=== PATIENT | male | born 1970 | race Caucasian/White ===

== ENCOUNTER 2016-11-14 14:17 | Emergency (ER) | payer OTHER ==
--- NOTE | 2016-11-14 15:15 | EDPHY ---
H & P Stated Complaint: possible venous ulcers on bilateral LEs since September, blood draw 11/09 - Personal History Current Tetanus/Diphtheria Vaccine: Yes Tetanus Vaccine Date: WITHIN 10 YRS - Medical/Surgical History Hx Asthma: No Hx Chronic Respiratory Disease: No Hx Diabetes: No Hx Cardiac Disease: No Hx Renal Disease: No Hx Cirrhosis: No Hx Alcoholism: No Hx HIV/AIDS: No Hx Splenectomy or Spleen Trauma: No Other PMH: none - Social History Smoking Status: Former smoker Time Seen by Provider: 11/14/16 14:58 HPI/ROS: CHIEF COMPLAINT: "Possible pressure ulcers" HISTORY OF PRESENT ILLNESS: 46-year-old immunocompetent male complaining of 3 months of bilateral pretibial the lesions. He has been followed by Dr. Mikie Isaacs at the [facility] for left calf EVLT and states that he started to develop left pretibial irritation, sloughing of skin and eschar a few months ago and has now developed similar right pretibial lesions. He has been seen by a primary care provider who recommend he follow up with heel lining paster. He saw heel lining paster who ordered multiple laboratory studies on 11/09/2016 and was informed that she was unable to interpret his laboratory studies and recommend he go to solution coordinator. He main appoint with solution coordinator hours X available appointment is not until 3 weeks. He therefore came to the ER for evaluation his laboratory studies and possible diagnosis. He has been wearing [place] hose. He is able to bear weight. There is no history of trauma. There is no crepitus. There is no lymphangitic streaking. No other rashes. No intraoral lesions. No ocular irritation. No genitalia lesions REVIEW OF SYSTEMS: A ten point review of systems was performed and is negative with the exception of the items mentioned in the HPI PAST MEDICAL & SURGICAL HISTORY: No anticoagulant use SOCIAL HISTORY: works as a software sales PHYSICAL EXAM (Prior to examination, patient consented to physical exam, hands were washed and my usual and customary physical exam procedures followed) 1) GENERAL: Well-developed, well-nourished, alert and oriented. Appears to be in no acute distress. 2) HEAD: Normocephalic, atraumatic 3) HEENT: . Sclera anicteric. 4) NECK: Full range of motion, no meningeal signs. 5) LUNGS: Breathing comfortably 6) HEART: Regular rate and rhythm, no murmur, no heave, no gallop. 7) ABDOMEN: No guarding, no rebound, no focal tenderness, 8) MUSCULOSKELETAL: Bilateral pretibial lesions in various stages of healing, some with erythema excoriation some with eschar . Soft compartments. Bilateral DP PT pulses present and brisk. No lymphangitic streaking. No inguinal adenopathy. No crepitus. No pain with passive range of motion distally bilaterally. 9) BACK: no visual or palpable abnormality. 10) SKIN: No rash, no petechiae. 11) Psychiatric: Patient is oriented X 3, there is no agitation. DIFFERENTIAL DIAGNOSIS: In no particular include but limited to cellulitis, arterial occlusion, venous occlusion, necrotizing fasciitis (Sneha Pineda) Constitutional: Initial Vital Signs Temperature (C) 36.5 C 11/14/16 14:30 Heart Rate 61 11/14/16 14:30 Respiratory Rate 14 11/14/16 14:30 Blood Pressure 135/93 H 11/14/16 14:30 O2 Sat (%) 96 11/14/16 14:30 O2 Delivery Mode Room Air Allergies/Adverse Reactions: ibuprofen Allergy (Verified 06/21/14 15:12) Home Medications: Medication Instructions Recorded Ambien 11/14/16 Cephalexin [Keflex] 500 mg PO QID 7 Days 11/14/16 Hydrocortisone 1% [Hydrocortisone 1 baldemar TOP BID #45 g 11/14/16 1% Cream] traMADol 11/14/16 Medical Decision Making - Diagnostics Imaging: Discussed imaging studies w/ call person Radiologist - Diagnostics Imaging Results: Imaging Impressions Extremity Venous Study 11/14/16 15:08 Impression: 1. Left greater saphenous vein superficial thrombophlebitis. 2. No deep venous thrombosis bilateral legs. Findings and recommendations discussed with Emergency Department physicianSneha PAC at 16:24 hour, 11/14/2016. Final report concurs with initial preliminary interpretation. ED Course/Re-evaluation: Patient was re-evaluated with serial examinations. Patient was also seen exam by Dr. Addy Soto in the emergency department. The specific etiology of his symptoms is not completely clear at this time. He has seen a heel lining paster who was not familiar with the etiology of his symptoms. I think that DVT is less than likely, doubt compartment syndrome. We discussed possibility of contact dermatitis, possibility of cellulitic super infection on top of his lesions which appear to be excoriated. Plan will be starting the patient on oral Keflex x7 days, topical steroid, follow up with wound surgeon Dr. Katia Brown and given name of primary care provider on-call Dr. Albina Noland. Given usual customary wound precautions and instructions. He feels comfortable with this plan. States that he already has an appointment with a solution coordinator which was recommended to him by his heel lining paster. (Sneha Pineda) I also saw this patient in the emergency department. I reviewed the history of having had venous ligation and now 3 weeks of rash that is painful. We talked about that he had gone did heel lining paster who liana labs but was not able to interpret. The labs were reviewed and he does have a somewhat elevated CRP and possibly elevated MUNA. Patient has no fever. He has no posterior calf pain on exam. The rash appears to be excoriated on the anterior shins bilaterally without lymphangitis. There are some slightly deeper scratch appearing areas. I reviewed his ultrasound which shows no evidence for DVT. We discussed plan of the antibiotics and steroids. Patient expresses understanding and agreement (Addy Soto) Departure - Departure Disposition: Home, Routine, Self-Care Clinical Impression: Bilateral pretibial rash Condition: Good Instructions: Acute Rash (ED) Additional Instructions: Return to the emergency department if you develop redness, red streaks going up the leg, pain, or any other symptoms that concern you Referrals: Katia Brown MD [Medical Doctor] - 5-7 days, call for appt. (Dr. Katia Brown is a general surgeon and transportation maintenance specialist) Albina Noland MD [Medical Doctor] - 2-3 days without fail (Dr. Albina Noland is adult medicine provider ) Prescriptions: Cephalexin [Keflex] 500 mg PO QID 7 Days Hydrocortisone 1% [Hydrocortisone 1% Cream] 1 baldemar TOP BID #45 g
[2016-11-14 17:42] VITALS: RESP 20
[2016-11-14 17:44] VITALS: BP 133/82; PULSE 68; TEMP 98.6; O2SAT 94
== END 2016-11-14 17:30 | disposition home or self-care (01) ==
DX: R21 Rash and other nonspecific skin eruption (principal); Z87.891 Personal history of nicotine dependence

== ENCOUNTER 2017-04-05 06:13 | Inpatient (IN) | payer OTHER ==
[2017-04-05] MEDS ORDERED: ceFAZolin 2 GM/SWFI 2 GM/20 ML SYR IVP ONE (06:22)
[2017-04-05] MEDS ORDERED: BUPIVACAINE 0.5% 30 ML SDV ONE (06:23)
[2017-04-05] MEDS ORDERED: LR 1,000 ML IV ONE (06:23)
[2017-04-05] MEDS ORDERED: LIDOCAINE 1% 2 ML INJ ID PRN (06:39)
[2017-04-05] MEDS ORDERED: PROPOFOL 200 MG/20 ML VIAL ONE (06:45)
[2017-04-05] MEDS ORDERED: PHENYLEPHRINE 10 MG/ML SDV ONE (06:45)
[2017-04-05] MEDS ORDERED: LIDOCAINE 2% 5 ML SDV ONE (06:45)
[2017-04-05] MEDS ORDERED: MIDAZOLAM 2 MG/2 ML VIAL ONE ×3 (06:50→10:28)
--- NOTE | 2017-04-05 06:52 | PDANEPAE ---
ANE History of Present Illness 47 year old male for bilateral leg debridement ANE Past Medical History - Cardiovascular History Hx Hypertension: No Hx Arrhythmias: No Hx Chest Pain: No Hx Coronary Artery / Peripheral Vascular Disease: No Hx CHF / Valvular Disease: No Hx Palpitations: No - Pulmonary History Hx COPD: No Hx Asthma/Reactive Airway Disease: No Hx Recent Upper Respiratory Infection: No Hx Oxygen in Use at Home: No - Neurologic History Hx Cerebrovascular Accident: No Hx Seizures: No Hx Dementia: No - Endocrine History Hx Diabetes: No - Renal History Hx Renal Disorders: No - Liver History Hx Hepatic Disorders: No - Neurological & Psychiatric Hx Hx Neurological and Psychiatric Disorders: No - Cancer History Hx Cancer: No - Congenital Disorder History Hx Congenital Disorders: No - GI History Hx Gastrointestinal Disorders: No - Chronic Pain History Chronic Pain: Yes - Surgical History Prior Surgeries: HERNIA, L LEG VEIN OBLATION ANE Review of Systems Review of Systems: - Exercise capacity METS (RN): 4 METS ANE Patient History - Allergies Allergies/Adverse Reactions: ibuprofen Allergy (Mild, Verified 04/05/17 06:44) Itching - Home Medications Home Medications: Ambien 11/14/16 [Last Taken 2 Months Ago ~02/03/17] traMADol 11/14/16 [Last Taken 04/04/17] - Smoking Hx Smoking Status: Former smoker - Family Anes Hx Family Hx Anesthesia Complications: NO ANE Labs/Vital Signs - Vital Signs Height: 182.88 cm Weight: 70.307 kg ANE Physical Exam - Airway Mallampati Score: Class 2 ANE Anesthesia Plan Anesthesia Plan: GA w LMA
[2017-04-05] MEDS ORDERED: PROPOFOL/EMULSION 500 MG/50 ML BOTTLE IV ONE (06:53)
--- NOTE | 2017-04-05 07:04 | PDHPUP ---
History & Physical Update H&P update statement: This history and physical update is based on an assessment of the patient which was completed after admission or registration (within 24 hours), but prior to the surgery/procedure. H&P update: H&P reviewed & patient examined, no change in patient's condition since H&P completed
[2017-04-05] MEDS ORDERED: DEXAMETHASONE 4 MG/ML VIAL ONE (08:59)
[2017-04-05] MEDS ORDERED: fentaNYL 250 MCG/5 ML INJ ONE (08:59)
[2017-04-05] MEDS ORDERED: KETOROLAC 30 MG/1 ML SDV ONE (08:59)
[2017-04-05] MEDS ORDERED: fentaNYL 100 MCG/2 ML INJ ONE (09:01)
[2017-04-05] MEDS ORDERED: HYDROmorphONE/DILAUDID 1 MG/ML INJ ONE ×2 (10:20→11:01)
[2017-04-05] MEDS ORDERED: LABETALOL HCL 5 MG/ML 20 ML MDV ONE (10:35)
[2017-04-05] MEDS: LABETALOL HCL 5 MG/ML 20 ML MDV IVP PRN ×4 (10:37→10:58)
[2017-04-05] MEDS ORDERED: ONDANSETRON 4 MG/2 ML VIAL IVP PRN (10:47)
[2017-04-05] MEDS ORDERED: traMADol 50 MG TAB PO PRN (10:47)
[2017-04-05] MEDS ORDERED: NALOXONE HCL 0.4 MG/ML INJ IVP PRN ×2 (10:55→14:59)
[2017-04-05] MEDS: HYDROmorphONE/DILAUDID 1 MG/ML INJ IVP PRN ×3 (11:04→11:41)
[2017-04-05] MEDS ORDERED: hydrALAZINE 20 MG/ML VIAL ONE (11:18)
[2017-04-05] MEDS ORDERED: hydrALAZINE 20 MG/ML VIAL IVP PRN ×2 (11:59→12:15)
[2017-04-05] MEDS ORDERED: predniSONE 20 MG TAB PO ONE (12:00)
[2017-04-05] MEDS: KETOROLAC 15 MG/1 ML SDV IVP SCH ×2 (12:59→19:13)
[2017-04-05 14:56] LABS: PLATELET COUNT 429 10^3/uL (150-400)
[2017-04-05] MEDS ORDERED: ALTEPLASE 2 MG VIAL IVP PRN (14:59)
[2017-04-05] MEDS ORDERED: PROTAMINE SULFATE 50 MG/5 ML VIAL IVP PRN (14:59)
[2017-04-05] MEDS ORDERED: FLUMAZENIL 0.5 MG/5 ML MDV IVP PRN (14:59)
[2017-04-05] MEDS ORDERED: HEPARIN 10,000 UNIT/10 ML MDV IVP PRN (14:59)
[2017-04-05] MEDS ORDERED: fentaNYL 100 MCG/2 ML INJ IVP PRN (14:59)
[2017-04-05] MEDS ORDERED: MIDAZOLAM 2 MG/2 ML VIAL IVP PRN (14:59)
[2017-04-05] MEDS ORDERED: NS 1,000 ML IV SCH (15:00)
[2017-04-05 15:08] LABS: INR 1.08 (0.83-1.16); PROTIME(PATIENT) 14.2 SEC (12.0-15.0)
[2017-04-05] MEDS ORDERED: IOPAMIDOL (ISOVUE-300) 100 ML BTL ONE ×3 (15:56→18:24)
--- NOTE | 2017-04-05 17:16 | PDRADPN ---
Radiology Procedure Note Date of Procedure: 04/05/17 Radiologist: Yobany Pantoja Anesthesia: IV Sedation Pre-op Diagnosis: Bilateral lower extremity ulcers Post-op Diagnosis: Iliac venous stenoses Indication: Worsening lower extremity ulceration despite endovenous Rx Procedure: Bilateral iliofemoral venography Finding(s): Stenoses of left common iliac vein and right external iliac vein. Inf/Abcess present in the surg proc area at time of surgery?: No EBL: Minimal Complications: 0
--- NOTE | 2017-04-05 17:49 | PDHOSCONS ---
Hospitalist Consult Hospitalist Consult: Referring Physician: Dr. Brown Reason for consultation: medical mgmt 47 yo male with 8 month history of worsening bilateral lower extremity ulcers. Biopsy c/w chronic stasis dermatitis. Admitted today for debridement per Dr. Brown. He had venography done today and these are c/w bilateral iliac stenosis. 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 Meds/Allergy: ibuprofen O: VSS and reviewed NAD AAOX3 HEENT, PEERLA, EOMI, MMM NO JVD RRR CTA B S/NT/ND SKIN WARM LE WITH DRESSINGS, DID NOT REMOVE MOOD APPROPRIATE LABS: WBC: 7.8, HGB: 13.8, PLATELETS 429, CRP: 49.2 REVIEWED VENOGRAM WITH RADIOLOGY I/P #Bilateral LE ulcers, etiology unclear #Bilateral Iliac Venous Stenosis, unclear etiology #Tobacco abuse disorder #Neuropathic pain Plan: -Per IR recommendations, will order CT abd/pelvis for further evaluation/ etiology -check for risk factors -will provide IVF given contrast -surgical mgmt per surgery thank you for this consult, we will follow along with you.
[2017-04-05] MEDS: GABAPENTIN 300 MG CAP PO SCH ×2 (19:13→22:42)
[2017-04-05] MEDS: NS 1,000 ML IV SCH (19:17)
[2017-04-05] MEDS: HYDROCODONE/APAP 5/325 TAB PO PRN (22:45)
[2017-04-05] MEDS: ZOLPIDEM TARTRATE 5 MG TAB PO PRN (22:46)
[2017-04-06] MEDS: KETOROLAC 15 MG/1 ML SDV IVP SCH ×4 (00:11→18:29)
[2017-04-06 04:33] LABS: PLATELET COUNT 439 10^3/uL (150-400)
[2017-04-06] MEDS: NS 1,000 ML IV SCH (08:57)
[2017-04-06] MEDS: PANTOPRAZOLE SODIUM 40 MG TAB PO SCH (10:35)
[2017-04-06] MEDS: GABAPENTIN 300 MG CAP PO SCH ×3 (10:35→21:12)
--- NOTE | 2017-04-06 11:19 | SOAPPROG ---
SOAP Progress Note Assessment/Plan: Assessment: POD # 1 s/p debridement of bilateral lower extremities and tissue biopsy C3, C4 and cryoglobulins still pending Tissue at [place] to evaluate for vasculitus Path pending at [facility] Micro with rare gn lactose radiation protection technician Hypertensive May Massey on Left and external iliac compression on right. CT without abdominal mass 1) Venogram with stent 2) Prednisone taper (previously help pain and could see CRP drop precipitously with medrol dose pack) Have discussed with his drug clerk in the event he will need to be on a steroid sparing regimine data processing systems consultant 3) Multimodal pain control - Neurontin, Toradol, [place] 4) Appreciate hospitalists helping with his hypertension 5) Holding off on Abx for now S: Slept last night Sitting in bed- pleasant and cooperative CTAB No increased work of breathing Regular rate Wraps on legs Plan: 04/06/17 11:15 Objective: Vital Signs Temp Pulse Resp BP Pulse Ox 36.6 C 89 18 160/93 H 96 04/06/17 08:01 04/06/17 08:01 04/06/17 08:01 04/06/17 08:01 04/06/17 08:01 Microbiology 04/05/17 10:13 Gram Stain - Final Leg - Tissue 04/05/17 10:13 Mycobacterial Smear (MAURI) - Final Leg - Tissue Laboratory Results 04/06/17 04:04 04/06/17 04:04 04/05/17 04/06/17 04/07/17 05:59 05:59 05:59 Intake Total 5025 Output Total 1950 900 Balance 3075 -900 PT 14.2 SEC (12.0-15.0) 04/05/17 14:50 INR 1.08 (0.83-1.16) 04/05/17 14:50 ICD10 Worksheet Patient Problems: Problems Problem Status Onset Bilateral leg ulcer Acute - ICD10 Problem Qualifiers (1) Bilateral leg ulcer Qualifiers: Non-pressure ulcer stage: with fat layer exposed Qualified Code(s): L97.912 - Non-pressure chronic ulcer of unspecified part of right lower leg with fat layer exposed; L97.922 - Non-pressure chronic ulcer of unspecified part of left lower leg with fat layer exposed; L97.922 - Non-pressure chronic ulcer of unspecified part of left lower leg with fat layer exposed; L97.922 - Non-pressure chronic ulcer of unspecified part of left lower leg with fat layer exposed; L97.922 - Non-pressure chronic ulcer of unspecified part of left lower leg with fat layer exposed
[2017-04-06] MEDS ORDERED: predniSONE 20 MG TAB PO ONE (12:00)
--- NOTE | 2017-04-06 12:21 | ASMTCMCOM ---
CM Note CM Note Notes: 04/06/2017 Case Management Note Reviewed chart. Pt had debridement of lower extremities yesterday. Awaiting wound care notes for help in planning d/c. There are no PT or OT evals ordered at this time. Case Management d/c poc: TBD Case Management to follow. Date Signed: 04/06/2017 12:21 PM Electronically Signed By:Zuleyma Larson RN
[2017-04-06] MEDS: HYDROCODONE/APAP 5/325 TAB PO PRN ×3 (13:20→22:26)
--- NOTE | 2017-04-06 15:46 | HOSPPROG ---
Hospitalist Progress Note Assessment/Plan: # Hypertension- without previous history- SBP 140-190 overnight - patient denies any substances with withdrawal syndrome Actively having pain requiring p.r.n. narcotics- oxygen saturations 94% on room air - start low-dose Norvasc 2.5 mg p.o. daily -can continue at DC - hold additional p.r.n. blood pressure medications - continue prn pain meds - Continue to monitor # Bilateral LE wounds- extensive outpatient workup including Rheumatology, Infectious Disease, vascular and surgery CT abdomen (personally reviewed and interpreted) confirms no intra- abdominal mass- venogram confirms stenoses bilaterally Wound culture with Pseudomonas - Dr. Guzmán managing actively - completing empiric prednisone burst - planning for venous stenting by IR bilaterally - discussed wound culture results with Dr. Guzmán # acute leukocytosis- WBC 11 suspect secondary to steroids - continue to monitor # proph - Lovenox # diet - regular # dispo - > 2MN as requires inpatient monitoring and intervention the venous stenoses I have discussed the case with Dr. Guzmán we will plan on IR intervention Subjective: Pain bilateral lower extremity Objective: Vital Signs Temp Pulse Resp BP Pulse Ox 36.4 C 82 18 169/103 H 96 04/06/17 11:38 04/06/17 11:38 04/06/17 11:38 04/06/17 11:38 04/06/17 11:38 Microbiology 04/05/17 10:13 Gram Stain - Final Leg - Tissue 04/05/17 10:13 Mycobacterial Smear (MAURI) - Final Leg - Tissue Laboratory Results 04/06/17 04:04 04/06/17 04:04 04/05/17 04/06/17 04/07/17 05:59 05:59 05:59 Intake Total 5025 Output Total 1950 900 Balance 3075 -900 PT 14.2 SEC (12.0-15.0) 04/05/17 14:50 INR 1.08 (0.83-1.16) 04/05/17 14:50 - Physical Exam Constitutional: appears nourished Eyes: anicteric sclera Ears, Nose, Mouth, Throat: moist mucous membranes Cardiovascular: regular rate and rhythym Respiratory: no respiratory distress Gastrointestinal: normoactive bowel sounds Genitourinary: no bladder fullness Skin: warm, other (Bilateral lower extremities dressed- serosanguineous drainage ) Musculoskeletal: No asymmetric calves Neurologic: AAOx3 Psychiatric: interacting appropriately Lymph, Heme, Immunologic: no cervical LAD ICD10 Worksheet Patient Problems: Problems Problem Status Onset Bilateral leg ulcer Acute
[2017-04-06] MEDS: ZOLPIDEM TARTRATE 5 MG TAB PO PRN (23:00)
--- NOTE | 2017-04-06 23:28 | GOP ---
[f rep st] OPERATIVE REPORT DATE OF OPERATION: 04/05/2017 SURGEON: Katia Brown MD ANESTHESIA: General. ANESTHESIOLOGIST: Otoniel Gee MD PREOPERATIVE DIAGNOSIS: Bilateral lower extremity chronic ulcers. POSTOPERATIVE DIAGNOSIS: Bilateral lower extremity chronic ulcers. PROCEDURE PERFORMED: Debridement of skin and soft tissue to the level of the fascia, bilateral lower extremities. FINDINGS: The wound on the right lower extremity medial malleolus measures 0.5 x 0.2 x 0.1 cm to the level of fat. The distal wound measures 0.8 x 1.5 x 0.1 cm. The middle wound measures 3 x 5.5 x 0.5 cm to the level of fat. Proximal wound measures 3.5 x 1 x 0.1 to the level of fat. The lateral wound measures 2.5 x 2 x 0.4 to the level of fascia. On the left lower extremity, the distal wound measures 12 x 7 x 0.5, and the proximal wound measures 1.1 x 1 x 0.1 cm to the level of fat. SPECIMENS: Biopsy for immunofluorescence, pathology, and microbiology. ESTIMATED BLOOD LOSS: 50 mL. INDICATIONS: The patient is a 47-year-old man who developed ulcers on his left lower extremity. He was found to have venous insufficiency and underwent ablation. He then developed wounds on the right lower extremity. He has tried a variety of treatments and has sought multiple opinions. He recently came back to my practice, and his wounds were much worse. Due to the pain, operative debridement was indicated. DESCRIPTION OF PROCEDURE: Patient was brought into the operating room, placed supine on the table, and general anesthesia was administered. His bilateral lower extremities were prepped with Betadine and draped. I used a combination of cautery, Versajet, and sharp dissection to debride each of the wounds ( measurements above). He had some areas of vasculitic purpura; 1 area was biopsied, and it was surprising to find that the wound immediately went to the fascia and tracked underneath. Each of the wounds was cleaned, and then biopsies were taken and submitted for immunofluorescence, permanent pathology, and microbiology. Hemostasis was achieved. Hydrofera Blue was applied. Cast wrap followed by Bryan bandages were applied. He tolerated the procedure well. He was awakened in the operating room, extubated, and transferred to PACU in stable condition. /[id number]/MODL MTDD
[2017-04-07] MEDS: KETOROLAC 15 MG/1 ML SDV IVP SCH ×5 (00:32→23:43)
[2017-04-07] MEDS: HYDROCODONE/APAP 5/325 TAB PO PRN ×3 (08:02→20:46)
[2017-04-07] MEDS: GABAPENTIN 300 MG CAP PO SCH ×3 (08:02→20:46)
[2017-04-07] MEDS: PANTOPRAZOLE SODIUM 40 MG TAB PO SCH (08:03)
[2017-04-07] MEDS: ASCORBIC ACID 500 MG TAB PO SCH (08:05)
[2017-04-07] MEDS ORDERED: ASCORBIC ACID 250 MG TAB PO SCH (09:00)
--- NOTE | 2017-04-07 09:08 | SOAPPROG ---
SOAP Progress Note Assessment/Plan: Assessment: Spent 20 minutes on phone with lars's sister at his request POD # 2 s/p debridement of bilateral lower extremities and tissue biopsy C3, C4 and cryoglobulins still pending HGB A1c pending Tissue at [place] to evaluate for vasculitus Path pending at [facility] Micro with rare pseudomonas. Evaluated wounds with Dr. Murrieta and no abx indicated Hypertensive - appreciate Dr. Piter Massey on Left and possible external iliac compression on right. CT without abdominal mass 1) IVUS as outpatient - Dr. Calderón getting equipment 2) Prednisone taper (previously help pain and could see CRP drop precipitously with medrol dose pack) Have discussed with his cnc specialist in the event he will need to be on a steroid sparing retirement 3) Multimodal pain control - Neurontin, Toradol, [place] 4) Appreciate hospitalists helping with his hypertension 5) Holding off on Abx for now Will keep in house another 24 hours as required IV pain control last night and hypertension still be addressed S: Pain after dressing changes Sitting in bed- pleasant and cooperative CTAB No increased work of breathing Regular rate Wraps on legs Wounds evaluated yesterday - smaller than when examined in the OR. Healthy. No signs of infection Plan: 04/06/17 11:15 04/07/17 09:04 Objective: Vital Signs Temp Pulse Resp BP Pulse Ox 36.3 C 87 16 140/95 H 97 04/07/17 05:06 04/07/17 08:06 04/07/17 08:06 04/07/17 08:06 04/07/17 08:06 Microbiology 04/05/17 10:13 Gram Stain - Final Leg - Tissue Laboratory Results 04/06/17 04:04 04/06/17 04:04 04/06/17 04/07/17 04/08/17 05:59 05:59 05:59 Intake Total 5025 3041 Output Total 1950 2950 750 Balance 3075 91 -750 PT 14.2 SEC (12.0-15.0) 04/05/17 14:50 INR 1.08 (0.83-1.16) 04/05/17 14:50 ICD10 Worksheet Patient Problems: Problems Problem Status Onset Bilateral leg ulcer Acute - ICD10 Problem Qualifiers (1) Bilateral leg ulcer Qualifiers: Non-pressure ulcer stage: with fat layer exposed Qualified Code(s): L97.912 - Non-pressure chronic ulcer of unspecified part of right lower leg with fat layer exposed; L97.922 - Non-pressure chronic ulcer of unspecified part of left lower leg with fat layer exposed; L97.922 - Non-pressure chronic ulcer of unspecified part of left lower leg with fat layer exposed; L97.922 - Non-pressure chronic ulcer of unspecified part of left lower leg with fat layer exposed; L97.922 - Non-pressure chronic ulcer of unspecified part of left lower leg with fat layer exposed
[2017-04-07] MEDS: predniSONE 20 MG TAB PO SCH (11:19)
[2017-04-07] MEDS ORDERED: amLODIPine BESYLATE 5 MG TAB PO SCH (14:23)
--- NOTE | 2017-04-07 14:26 | HOSPPROG ---
Hospitalist Progress Note Assessment/Plan: # Hypertension- without previous history- SBP 140-180 overnight - patient denies any substances with withdrawal syndrome Actively having pain requiring p.r.n. narcotics- oxygen saturations 95% on room air - increase Norvasc to 5 mg p.o. daily -can continue at DC - hold additional p.r.n. blood pressure medications - continue prn pain meds - Continue to monitor # Bilateral LE wounds- extensive outpatient workup including Rheumatology, Infectious Disease, vascular and surgery CT abdomen (personally reviewed and interpreted) confirms no intra- abdominal mass- venogram confirms stenoses bilaterally Wound culture with Pseudomonas - Dr. Guzmán managing actively - completing empiric prednisone burst - planning for venous stenting by IR bilaterally as outpt -adding Toradol today # acute leukocytosis- WBC 11 suspect secondary to steroids - continue to monitor # proph - Lovenox # diet - regular # dispo - > 2MN as requires inpatient monitoring and intervention the venous stenoses I have discussed the case with Dr. Guzmán we will plan for dc tomorrow if pain better controlled Subjective: concerned about returning home Objective: Vital Signs Temp Pulse Resp BP Pulse Ox 36.4 C 56 L 16 153/96 H 95 04/07/17 12:34 04/07/17 12:34 04/07/17 12:34 04/07/17 12:34 04/07/17 12:34 Microbiology 04/05/17 10:13 Gram Stain - Final Leg - Tissue 04/05/17 10:13 Mycobacterial Smear (MAURI) - Final Leg - Tissue Laboratory Results 04/06/17 04:04 04/06/17 04:04 04/06/17 04/07/17 04/08/17 05:59 05:59 05:59 Intake Total 5025 3041 500 Output Total 1950 2950 750 Balance 3075 91 -250 PT 14.2 SEC (12.0-15.0) 04/05/17 14:50 INR 1.08 (0.83-1.16) 04/05/17 14:50 - Physical Exam Constitutional: appears nourished Eyes: anicteric sclera Ears, Nose, Mouth, Throat: moist mucous membranes Cardiovascular: regular rate and rhythym Respiratory: no respiratory distress Gastrointestinal: normoactive bowel sounds Genitourinary: no bladder fullness Skin: warm, other (bilateral LE wrapped) Musculoskeletal: No asymmetric calves Neurologic: AAOx3 Psychiatric: interacting appropriately Lymph, Heme, Immunologic: no cervical LAD ICD10 Worksheet Patient Problems: Problems Problem Status Onset Bilateral leg ulcer Acute
[2017-04-07] MEDS ORDERED: POLYETHYLENE GLYCOL 3350 17 GM PKT PO PRN (14:42)
[2017-04-07] MEDS ORDERED: MAGNESIUM HYDROXIDE 30 ML UDCUP PO PRN (14:42)
[2017-04-07] MEDS ORDERED: LACTULOSE 20 GM/30 ML UDCUP PO PRN (14:42)
[2017-04-07] MEDS ORDERED: BISACODYL 10 MG SUPP PR PRN (14:42)
[2017-04-07] MEDS: SENNOSIDES/DOCUSATE SODIUM TAB PO SCH (20:46)
[2017-04-07] MEDS: ZOLPIDEM TARTRATE 5 MG TAB PO PRN (23:43)
[2017-04-08 04:53] VITALS: RESP 16
[2017-04-08] MEDS: HYDROCODONE/APAP 5/325 TAB PO PRN ×2 (05:04→09:51)
[2017-04-08] MEDS: KETOROLAC 15 MG/1 ML SDV IVP SCH ×2 (05:05→11:16)
[2017-04-08 08:20] VITALS: BP 166/100; PULSE 67; TEMP 97.7; O2SAT 94
[2017-04-08] MEDS: SENNOSIDES/DOCUSATE SODIUM TAB PO SCH (08:30)
[2017-04-08] MEDS: PANTOPRAZOLE SODIUM 40 MG TAB PO SCH (08:31)
[2017-04-08] MEDS: ASCORBIC ACID 500 MG TAB PO SCH (08:31)
[2017-04-08] MEDS: GABAPENTIN 300 MG CAP PO SCH (08:31)
--- NOTE | 2017-04-08 09:54 | SOAPPROG ---
SOAP Progress Note Assessment/Plan: Assessment: Spent 20 minutes on phone with lars's sister at his request POD # 3 s/p debridement of bilateral lower extremities and tissue biopsy C3, C4 and cryoglobulins still pending HGB A1c 5.7 Tissue at [place] to evaluate for vasculitus Path pending at [facility] Micro with rare pseudomonas and staph. Evaluated wounds with Dr. Murrieta and no abx indicated Hypertensive - appreciate Dr. Dumas . Likely related to stress May Massey on Left and possible external iliac compression on right. CT without abdominal mass DC home 1) IVUS as outpatient - Dr. Calderón getting equipment 2) Prednisone taper (previously help pain and could see CRP drop precipitously with medrol dose pack) Have discussed with his chiropractic teacher in the event he will need to be on a steroid sparing nursing home 3) Multimodal pain control - Neurontin, Tramadol, Ibuprofen, Excel 4) Appreciate hospitalists helping with his hypertension 5) Holding off on Abx for now S: Did not sleep well last night Sitting in bed- pleasant and cooperative Wraps on legs Plan: 04/06/17 11:15 04/07/17 09:04 04/08/17 09:52 Objective: Vital Signs Temp Pulse Resp BP Pulse Ox 36.5 C 67 16 166/100 H 94 04/08/17 08:15 04/08/17 08:15 04/08/17 08:15 04/08/17 08:15 04/08/17 08:15 Microbiology 04/05/17 10:13 Gram Stain - Final Leg - Tissue 04/05/17 10:13 Mycobacterial Smear (MAURI) - Final Leg - Tissue Laboratory Results 04/06/17 04:04 04/06/17 04:04 04/07/17 04/08/17 04/09/17 05:59 05:59 05:59 Intake Total 3041 1700 Output Total 2950 1400 Balance 91 300 PT 14.2 SEC (12.0-15.0) 04/05/17 14:50 INR 1.08 (0.83-1.16) 04/05/17 14:50 ICD10 Worksheet Patient Problems: Problems Problem Status Onset Bilateral leg ulcer Acute - ICD10 Problem Qualifiers (1) Bilateral leg ulcer Qualifiers: Non-pressure ulcer stage: with fat layer exposed Qualified Code(s): L97.912 - Non-pressure chronic ulcer of unspecified part of right lower leg with fat layer exposed; L97.922 - Non-pressure chronic ulcer of unspecified part of left lower leg with fat layer exposed; L97.922 - Non-pressure chronic ulcer of unspecified part of left lower leg with fat layer exposed; L97.922 - Non-pressure chronic ulcer of unspecified part of left lower leg with fat layer exposed; L97.922 - Non-pressure chronic ulcer of unspecified part of left lower leg with fat layer exposed
[2017-04-08] MEDS: predniSONE 20 MG TAB PO SCH (11:19)
--- NOTE | 2017-04-08 16:21 | ASDISCHSUM ---
Discharge Information Plan Status:Home with No Needs Medically Cleared to Leave:04/07/2017 Discharge Date:04/08/2017 12:45 PM CM D/C Disposition: ADT D/C Disposition:Home, Routine, Self-Care Projected Discharge Date:04/08/2017 12:00 AM Transportation at D/C: Discharge Delay Reason: Follow-Up Date:04/08/2017 12:00 AM Discharge Slot: Final Diagnosis: Placement Information Patient Contact Information Contact Name:VAL Relationship: Address:[address] Work Phone: [facility] Phone: [facility]/Zip Code:[place] [address] Email: Financial Information Financial Class:HMO and PPO Plans Primary Plan Desc:[facility] Primary Plan Number:[id number] Secondary Plan Desc: Secondary Plan Number: Assessment Information [facility] CM Progress Note CM Note CM Note Notes: 04/06/2017 Case Management Note Reviewed chart. Pt had debridement of lower extremities yesterday. Awaiting wound care notes for help in planning d/c. There are no PT or OT evals ordered at this time. Case Management d/c poc: TBD Case Management to follow. Date Signed: 04/06/2017 12:21 PM Electronically Signed By:Zuleyma Larson RN Intervention Information
--- NOTE | 2017-04-08 17:17 | HOSPPROG ---
Hospitalist Progress Note Assessment/Plan: # Hypertension- without previous history- SBP 140-180 overnight - patient denies any substances with withdrawal syndrome Actively having pain requiring p.r.n. narcotics- oxygen saturations 95% on room air - continue Norvasc 5 mg daily on dc # Bilateral LE wounds- extensive outpatient workup including Rheumatology, Infectious Disease, vascular and surgery CT abdomen (personally reviewed and interpreted) confirms no intra- abdominal mass- venogram confirms stenoses bilaterally Wound culture with Pseudomonas - Dr. Guzmán managing actively - completing empiric prednisone burst - planning for venous stenting by IR bilaterally as outpt - cont ultram as outpt # acute leukocytosis- WBC 11 suspect secondary to steroids - continue to monitor # proph - Lovenox # diet - regular # dispo - > 2MN as requires inpatient monitoring and intervention the venous stenoses I have discussed the case with Dr. Guzmán patient safe for dispo today Subjective: some pain still Objective: Vital Signs Temp Pulse Resp BP Pulse Ox 36.5 C 67 16 166/100 H 94 04/08/17 08:15 04/08/17 08:15 04/08/17 08:15 04/08/17 08:15 04/08/17 08:15 Microbiology 04/05/17 10:13 Gram Stain - Final Leg - Tissue Laboratory Results 04/06/17 04:04 04/06/17 04:04 04/07/17 04/08/17 04/09/17 05:59 05:59 05:59 Intake Total 3041 1700 Output Total 2950 1400 Balance 91 300 PT 14.2 SEC (12.0-15.0) 04/05/17 14:50 INR 1.08 (0.83-1.16) 04/05/17 14:50 - Physical Exam Constitutional: appears nourished Eyes: anicteric sclera Ears, Nose, Mouth, Throat: moist mucous membranes Cardiovascular: regular rate and rhythym Respiratory: no respiratory distress Gastrointestinal: normoactive bowel sounds Genitourinary: no bladder fullness Skin: warm Musculoskeletal: No asymmetric calves Neurologic: AAOx3 Psychiatric: interacting appropriately Lymph, Heme, Immunologic: no cervical LAD ICD10 Worksheet Patient Problems: Problems Problem Status Onset Bilateral leg ulcer Acute
[2017-04-10] MEDS ORDERED: predniSONE 10 MG TAB PO SCH (12:00)
[2017-04-13] MEDS ORDERED: predniSONE 5 MG TAB PO SCH (12:00)
== END 2017-04-08 12:45 | disposition home or self-care (01) | DRG 593 ==
LOC: FSGY 06:13 → F1N 10:46 → OBSVTOIN 04-06 11:48
PROVIDERS: ADMIT Surgery; ATTEND Surgery
PROC: 0HDKXZZ Extraction of Right Lower Leg Skin, External Approach (ICD-10-PCS; principal; 2017-04-05)
PROC: 0HDLXZZ Extraction of Left Lower Leg Skin, External Approach (ICD-10-PCS; principal; 2017-04-05)
PROC: 06HG33Z Insertion of Infusion Device into Left External Iliac Vein, Percutaneous Approach (ICD-10-PCS; 2017-04-05)
PROC: 06HF33Z Insertion of Infusion Device into Right External Iliac Vein, Percutaneous Approach (ICD-10-PCS; 2017-04-05)
DX: L97.922 Non-pressure chronic ulcer of unspecified part of left lower leg with fat layer exposed (principal); L97.912 Non-pressure chronic ulcer of unspecified part of right lower leg with fat layer exposed; I87.333 Chronic venous hypertension (idiopathic) with ulcer and inflammation of bilateral lower extremity; I87.2 Venous insufficiency (chronic) (peripheral); D72.829 Elevated white blood cell count, unspecified; I77.1 Stricture of artery; I10 Essential (primary) hypertension; F17.210 Nicotine dependence, cigarettes, uncomplicated
CPT/HCPCS: 82595-90; 97161-GP; C1769; C1894; G0378; J0171; J0360; J0690; J1100; J1170; J1644; J1885; J2250; J2310; J2370; J2405; J2704; J3010; J3490; Q9967

== ENCOUNTER 2017-04-12 08:39 | Observation (INO) | payer OTHER ==
--- NOTE | 2017-04-12 09:17 | EDPHY ---
General Narrative: CHIEF COMPLAINT: Bleeding from wound HISTORY OF PRESENT ILLNESS: Patient complains of bleeding from a right lower extremity wound early this morning. He says that he noticed heavy bleeding from the medial side of the right calf this morning. He applied additional pressure but did not remove the underlying wound dressing. This was able to hemostasis within 20 min. No new pain for him during this. This happened earlier this week Saturday at 4: 00 a.m. as well. He was seen at [facility], where he redressed the wounds and was sent home. He denies any chest pain, shortness of breath, cold sensation, numbness or tingling. He denies any trauma or injury to the legs. He reports a long history of lower extremity ulcerations over the past 8 months with unclear etiology. He is scheduled for interventional radiology venogram and possible stenting today at 11:00 a.m.. He has contacted them to notify them of his ER visit. No other associated complaints or modifying factors. REVIEW OF SYSTEMS: Ten systems reviewed and are negative unless otherwise noted in the HPI PCP: Dr. Cordova SPECIALISTS: Dr. Kevin Pantoja PAST MEDICAL HISTORY: Hypertension, venous insufficiency PAST SURGICAL HISTORY: Recent debridement of bilateral lower extremity stasis ulcers SOCIAL HISTORY: Occasional smoker. Occasional alcohol. No drug use. 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 Lives in [place] FAMILY HISTORY: Noncontributory EXAMINATION General Appearance: Alert, no distress Head: normocephalic, atraumatic Eyes: Pupils equal and round, no conjunctival pallor or injection ENT, Mouth: Mucous membranes moist Neck: Normal inspection, supple, non-tender Respiratory: Lungs are clear to auscultation. No wheezing or rhonchi or crackles Cardiovascular: Regular rate and rhythm. No murmur. Palpable symmetric DP and PT pulses 2+. Neurological: A&O, nonfocal, normal proprioception of the great toes bilaterally. Skin: Warm and dry. No cellulitis. The right lower extremity dressings were removed and there are multiple areas of ulceration with blue drove dressings in place. No active bleeding. There is clotted blood in 3 of the right medial calf stasis ulcerations. No surrounding erythema or purpura. No petechiae. Left wounds unable to be visualized as the patient declined to have the dressings removed. Extremities: Significant tenderness in the area of the ulcerations only. Range of motion is symmetric in the knees and ankles. Neurovascular intact distal to these with warm skin and symmetric pulses. Psychiatric: Mood and affect normal DIFFERENTIAL DIAGNOSES: Including but not limited to venous stasis ulceration, surgical complication, postoperative pain, arterial bleed, venous insufficiency, venous stenosis MDM: 9:20 a.m. Right lower extremity wound bleeding overnight. Patient has extensive venous stasis ulceration with recent or debridement on April 05. He is scheduled for venous stenting today in interventional radiology at 11:00 a.m.. Dressings were removed on the right lower extremity and reveal multiple areas of ulceration with wound care dressings in place. No active bleeding but there is evidence of recent bleeding. No signs of infection. He is neurovascular intact distal to these ulcerations. His foot is warm to the touch and normal appearing collar. There is a palpable DP and PT pulses symmetrically. I have consult General surgery for assistance. 9:22 a.m. Case discussed with general surgeon on-call Dr. Ferrell. He will evaluate the patient. 9:40 a.m. Radha SMITH with General surgery is in the emergency department to evaluate the patient. MC Silva, with interventional radiology is in the emergency department. The 3 of us have discussed the patient's scenario. General surgery will evaluate the wounds. Ricardo has coordinated for the patient to still have his interventional radiology procedure done, which is venogram with possible venous stenting. At this point IV access will be obtained for the laboratory studies that interventional radiology needs. I have ordered pain medication. He is currently be evaluated by the general surgery PA. 10:05a.m. Patient has been evaluated by the general surgery PA. She has placed the wound care dressings that she would like in a bag with the patient. These will be applied in interventional radiology. No further requests from her. 10:20 a.m.. Patient is currently being seen by the RN with interventional Radiology. They will take him shortly to the IR pre admit area. They will provide his disposition from the hospital from there. They plan for observation admission with General surgery due to the procedure. At this time he is resting comfortably in no acute distress. 10:55 a.m. Ricardo BENTLEY from Interventional Radiology is requesting that we obtain an admitting physician for the patient. Dr. Carr has discussed with Dr. Ferrell and he requested the patient be admitted to the hospitalist. 11:05 a.m. Case discussed with hospitalist Veronica Mancera. Patient will be admitted to Dr. Paula. They will see the patient after his IR procedure. He is admitted in stable condition. SUPERVISION: Patient was independently examined, but I discussed the case with my primary supervising physician Dr. Carr. - History Smoking Status: Current some day smoker - Objective Vital Signs: Initial Vital Signs Temperature (C) 97.7 F 04/12/17 08:44 Heart Rate 77 04/12/17 08:44 Respiratory Rate 17 04/12/17 08:44 Blood Pressure 141/119 H 04/12/17 08:44 O2 Sat (%) 97 04/12/17 08:44 O2 Delivery Mode Room Air Allergies/Adverse Reactions: No Allergies [NKDA] Allergy (Verified 04/10/17 17:47) Home Medications: Medication Instructions Recorded Gabapentin [Neurontin 300 MG (*)] 300 mg PO TID cap 04/08/17 Hydrocodone/APAP 5/325 [[place] 2 tab PO Q4HRS PRN #30 tab 04/08/17 5/325 (*)] Ibuprofen [Ibuprofen Ib] 200 mg PO Q6HRS #30 tablet 04/08/17 amLODIPine BESYLATE [Norvasc 5 mg 5 mg PO DAILY #30 tab 04/08/17 (*)] traMADol [Ultram 50 mg (*)] 50 mg PO Q6HRS PRN #30 tab 04/08/17 Zolpidem Tartrate [Ambien 5MG (*)] 5 mg PO HS PRN 04/10/17 Laboratory Results: Laboratory Results 04/12/17 09:50 04/12/17 09:50 04/12/17 04/12/17 04/12/17 09:50 09:50 09:50 WBC 14.39 10^3/uL H 10^3/uL (3.80-9.50) RBC 3.74 10^6/uL L 10^6/uL (4.40-6.38) Hgb 11.3 g/dL L g/dL (13.7-17.5) Hct 32.9 % L % (40.0-51.0) MCV 88.0 fL fL (81.5-99.8) MCH 30.2 pg pg (27.9-34.1) MCHC 34.3 g/dL g/dL (32.4-36.7) RDW 11.8 % % (11.5-15.2) Plt Count 578 10^3/uL H 10^3/uL (150-400) PT 13.1 SEC SEC (12.0-15.0) INR 0.97 (0.83-1.16) APTT 28.6 SEC SEC (23.0-38.0) Sodium 140 mEq/L mEq/L (134-144) Potassium 5.2 mEq/L mEq/L (3.5-5.2) Chloride 101 mEq/L mEq/L (97-110) Carbon Dioxide 27 mEq/l mEq/l (22-31) Anion Gap 12 mEq/L mEq/L (8-16) BUN 12 mg/dL mg/dL (7-23) Creatinine 0.7 mg/dL mg/dL (0.7-1.3) Estimated GFR > 60 Glucose 103 mg/dL H mg/dL (70-100) Calcium 9.1 mg/dL mg/dL (8.5-10.4) Medications Given: Discontinued Medications Fentanyl (Sublimaze) 100 mcg IVP EDNOW ONE Stop: 04/12/17 09:42 Last Admin: 04/12/17 10:03 Dose: 100 mcg Ondansetron HCl (Zofran) 4 mg IVP EDNOW ONE Stop: 04/12/17 09:42 Last Admin: 04/12/17 10:04 Dose: 4 mg Departure - Departure Disposition: To OP Cath/Surgery Clinical Impression: Venous insufficiency Lower extremity ulceration Qualifiers: Laterality: right Non-pressure ulcer stage: limited to breakdown of skin Qualified Code(s): L97.911 - Non-pressure chronic ulcer of unspecified part of right lower leg limited to breakdown of skin Condition: Good
[2017-04-12] MEDS ORDERED: ONDANSETRON 4 MG/2 ML VIAL IVP ONE (09:41)
[2017-04-12] MEDS ORDERED: fentaNYL 100 MCG/2 ML INJ IVP ONE ×2 (09:41→11:23)
[2017-04-12 10:21] LABS: INR 0.97 (0.83-1.16); PROTIME(PATIENT) 13.1 SEC (12.0-15.0)
[2017-04-12] MEDS ORDERED: FLUMAZENIL 0.5 MG/5 ML MDV IVP PRN (12:00)
[2017-04-12] MEDS ORDERED: GLUCAGON HCL 1 MG VIAL IVP PRN (12:00)
[2017-04-12] MEDS ORDERED: NALOXONE HCL 0.4 MG/ML INJ IVP PRN (12:00)
[2017-04-12] MEDS ORDERED: ALTEPLASE 2 MG VIAL IVP PRN (12:00)
[2017-04-12] MEDS ORDERED: NS 1,000 ML IV SCH (12:00)
[2017-04-12] MEDS ORDERED: MEPERIDINE 25 MG/ML SYR IVP PRN (12:00)
[2017-04-12] MEDS ORDERED: MIDAZOLAM 2 MG/2 ML VIAL IVP PRN (12:00)
[2017-04-12] MEDS ORDERED: fentaNYL 100 MCG/2 ML INJ IVP PRN (12:00)
[2017-04-12] MEDS ORDERED: PROTAMINE SULFATE 50 MG/5 ML VIAL IVP PRN (12:00)
[2017-04-12] MEDS ORDERED: HEPARIN 10,000 UNIT/10 ML MDV IVP PRN (12:00)
[2017-04-12] MEDS ORDERED: NALOXONE HCL 0.4 MG/ML INJ ONE (13:46)
[2017-04-12] MEDS ORDERED: FLUMAZENIL 0.5 MG/5 ML MDV IVP ONE (13:46)
[2017-04-12] MEDS ORDERED: fentaNYL 100 MCG/2 ML INJ ONE (13:47)
[2017-04-12] MEDS ORDERED: MIDAZOLAM 2 MG/2 ML VIAL ONE (13:47)
[2017-04-12] MEDS ORDERED: LIDOCAINE 1% 300 MG/30 ML SDV ONE (14:10)
--- NOTE | 2017-04-12 14:21 | PDGENHP ---
History & Physical Chief Complaint: Ulcers of both legs History of Present Illness: bleeding from ulcers, severe on right Pertinent Past, Social, Family History: Numbness, nonhealing scrape, followed by bilateral ulcerations. EVLA of left GSV end of October 2016, Dr. Jordan. Cardiorespiratory Assessment: Lungs: clear to auscultation. Heart: RRR, no murmur, 68 bpm.
--- NOTE | 2017-04-12 14:22 | PDPROPOC ---
Sedation Plan of Care Sedation Plan of Care: vital signs stable, mental status noted, patient educated of risks, benefits, alternatives, patient can tolerate sedation ASA Classification: ASA 3 Planned drugs: fentanyl, midazolam Mallampati Score: Class 2 Mallampati Reference Image: Patient passed 3-3-2 rule?: Yes
[2017-04-12] MEDS ORDERED: ceFAZolin 2 GM/SWFI 2 GM/20 ML SYR IVP ONE (15:00)
[2017-04-12] MEDS ORDERED: ONDANSETRON DISINTEGRATING 4 MG TAB PO PRN (15:41)
[2017-04-12] MEDS ORDERED: ACETAMINOPHEN 325 MG TAB PO PRN (15:41)
[2017-04-12] MEDS ORDERED: ONDANSETRON 4 MG/2 ML VIAL IVP PRN (15:41)
[2017-04-12] MEDS ORDERED: IOPAMIDOL (ISOVUE-300) 100 ML BTL ONE (16:24)
--- NOTE | 2017-04-12 16:37 | PDRADPN ---
Radiology Procedure Note Date of Procedure: 04/12/17 Radiologist: Yobany Pantoja Anesthesia: IV Sedation Pre-op Diagnosis: Bilateral leg ulcers Post-op Diagnosis: Same Indication: ?Venous hypertension Procedure: Bilateral Iliac Venous IVUS, hemodynamics, and venography Finding(s): Hemodynamically insignificant extrinsic deformity of left common iliac vein secondary to osteophytes at L5-S1. Normal venous pressures; no gradient. No indication for stenting. Inf/Abcess present in the surg proc area at time of surgery?: No EBL: Minimal
[2017-04-12] MEDS ORDERED: HYDROmorphONE/DILAUDID 1 MG/ML INJ ONE (16:50)
[2017-04-12] MEDS ORDERED: HYDROmorphONE/DILAUDID 1 MG/ML INJ IVP ONE (17:00)
[2017-04-12] MEDS ORDERED: OXYCODONE/APAP 5/325 TAB ONE (17:16)
--- NOTE | 2017-04-12 17:18 | SOAPPROG ---
SOAP Progress Note Assessment/Plan: Assessment/Plan: 47yo M well known to us for BLE venous leg ulcers. ER this morning with active bleeding from RLE wound. No active bleeding on exam. Evaluated in both ER and PACU. Iliac stent planned for IR today Dressings changed in PACU - hydrofera blue ready, cast padding and MATT wraps for compression Elevate if not contraindicated by IR Dressings will be changed again on Saturday - make appt with Dr. Brown Overnight obs, appreciate hospitalist management Discussed c Dr. Ferrell Objective: Vital Signs Temp Pulse Resp BP Pulse Ox 36.9 C 69 14 132/74 H 100 04/12/17 12:30 04/12/17 14:50 04/12/17 14:50 04/12/17 16:29 04/12/17 16:31 04/11/17 04/12/17 04/13/17 05:59 05:59 05:59 Output Total 600 Balance -600 PT 13.1 SEC (12.0-15.0) 04/12/17 09:50 INR 0.97 (0.83-1.16) 04/12/17 09:50 ICD10 Worksheet Patient Problems: Problems Problem Status Onset Lower extremity ulceration Acute Venous insufficiency Acute Bilateral leg ulcer Acute
[2017-04-12] MEDS: OXYCODONE/APAP 5/325 TAB PO PRN ×2 (17:21→21:40)
[2017-04-12] MEDS ORDERED: HYDROCODONE/APAP 5/325 TAB PO PRN (17:28)
[2017-04-12] MEDS ORDERED: ZOLPIDEM TARTRATE 5 MG TAB PO PRN (17:28)
[2017-04-12] MEDS ORDERED: traMADol 50 MG TAB PO PRN (17:28)
[2017-04-12] MEDS ORDERED: HYDROmorphONE/DILAUDID 1 MG/ML INJ IVP PRN ×3 (17:43→17:47)
--- NOTE | 2017-04-12 17:59 | GHP ---
[f rep st] HISTORY AND PHYSICAL DATE OF ADMISSION: 04/12/2017 CHIEF COMPLAINT: Lower extremity ulcers. HISTORY OF PRESENT ILLNESS: The patient is a 47-year-old male with history of hypertension, who has developed chronic lower extremity wounds and presents to the hospital for venous stenting at the marty mmendation of his surgeon. He underwent venography on April 05, which showed bilateral iliac ve in stenosis. An abdominal CT was then performed, which did not reveal a mass effect on the iliac vei ns. A biopsy was then performed by general surgery, which showed chronic venous stasis dermatitis. He was admitted to the hospital during that time and underwent debridement by Dr. Brown on March 09. He has been treated with a prednisone taper. He continues to have bilateral lower extremity ul cers and venous stasis changes. It was planned for him to undergo outpatient elective venous stentin g; however, the surgery service wished for him to be observed in the hospital overnight post procedur e. I evaluated the patient in the interventional radiology suite. Unfortunately, they were unable t o find a stentable vessel. He is taken to the PACU where a dressing change will be performed, and he will be admitted to med/surg under observation status. PAST MEDICAL HISTORY: 1. Hypertension. 2. Bilateral lower extremity wounds, which are now chronic. 3. Neuropathy. 4. Insomnia. MEDICATIONS: Please see [employer] complete updated outpatient medication list. ALLERGIES: No known drug allergies. FAMILY HISTORY: Reviewed and noncontributory. SOCIAL HISTORY: The patient is . He is an occasional smoker. REVIEW OF SYSTEMS: A 10-point review of systems was performed and is negative except as per HPI. OBJECTIVE: VITAL SIGNS: Temperature is 36.9, blood pressure 132/74, heart rate 74, respiratory rate 12. He is 100% O2 sat. GENERAL: Patient is awake, alert, and oriented, in no distress. HEENT: H ead is atraumatic, normocephalic. Pupils equal, round, react to light. EOMs are intact. Oropharynx is clear. Mucous members are moist. NECK: Supple. There is no JVD. HEART: Regular rate and rhy thm without murmur. LUNGS: Clear to auscultation bilaterally. ABDOMEN: Soft, nondistended, nonten sheila. Normoactive bowel sounds. EXTREMITIES: He has bilateral punctate ulcerations with central nec roses on his lower extremities. 2+ peripheral pulses are detected, and his extremities are otherwise warm. NEUROLOGIC: Grossly nonfocal. LABORATORY DATA: CBC reveals a white blood cell count of 14.4, platelets are 578. INR 0.97. Basic metabolic panel reveals normal electrolytes, normal creatinine of 0.7, glucose of 103. ASSESSMENT AND PLAN: The patient is a 47-year-old male who is admitted to the hospital with bilatera l lower extremity venous ulcers. 1. Bilateral lower extremity venous ulcers, secondary to bilateral iliac vein stenosis. Interventio nal Radiology's attempt at placing a stent was unsuccessful. He has been seen by Surgery for a dress ing change in the PACU and will continue with padding and Bryan wraps for compression along with elevat ion. Will observe in the hospital overnight. Further recommendations per Vascular Surgery. 2. Hypertension. Patient has been normotensive. Will continue his amlodipine. 3. Peripheral neuropathy. Continue gabapentin and p.r.n. tramadol, and [place] as needed. 4. Leukocytosis. I do not see evidence of acute infection. Will follow him closely for fevers and trend his white blood cell count. I will also send a CRP. 5. Thrombocytosis. Suspect an acute phase reactant in the setting of chronic lower extremity ulcera tions. Will continue to follow. CODE STATUS: Full. DISPOSITION: Observation. /[id number]/MODL
[2017-04-12] MEDS: oxyCODONE IR 5 MG TAB PO PRN ×2 (18:44→23:10)
--- NOTE | 2017-04-12 19:39 | SOAPPROG ---
SOAP Progress Note Assessment/Plan: Assessment: pt with bilateral venous stasis ulcers with acute bleeding on the right sp venograms with no evidence of obstruction requiring stents Plan:observe, elevation, compression dressings 04/12/17 19:11 Objective: Vital Signs Temp Pulse Resp BP Pulse Ox 36.6 C 75 15 159/99 H 99 04/12/17 18:20 04/12/17 18:20 04/12/17 18:20 04/12/17 18:20 04/12/17 18:20 04/11/17 04/12/17 04/13/17 05:59 05:59 05:59 Intake Total 1190 Output Total 600 Balance 590 PT 13.1 SEC (12.0-15.0) 04/12/17 09:50 INR 0.97 (0.83-1.16) 04/12/17 09:50 ICD10 Worksheet Patient Problems: Problems Problem Status Onset Lower extremity ulceration Acute Venous insufficiency Acute Bilateral leg ulcer Acute
[2017-04-12] MEDS: GABAPENTIN 300 MG CAP PO SCH (21:40)
[2017-04-13 04:11] LABS: PLATELET COUNT 474 10^3/uL (150-400)
[2017-04-13] MEDS: oxyCODONE IR 5 MG TAB PO PRN ×4 (05:36→16:30)
[2017-04-13] MEDS ORDERED: amLODIPine BESYLATE 5 MG TAB PO SCH (09:00)
[2017-04-13] MEDS ORDERED: ENOXAPARIN 40 MG/0.4 ML SYR SC SCH (09:00)
[2017-04-13] MEDS ORDERED: DIOSMIN COMPLEX NO 1 PO SCH (09:00)
[2017-04-13 09:27] VITALS: TEMP 98.3
[2017-04-13] MEDS: GABAPENTIN 300 MG CAP PO SCH ×2 (09:28→16:30)
[2017-04-13] MEDS: IBUPROFEN 200 MG TAB PO PRN ×2 (09:28→16:30)
[2017-04-13] MEDS ORDERED: IOPAMIDOL (ISOVUE 370) 100 ML BTL IV ONE (10:44)
--- NOTE | 2017-04-13 11:54 | SOAPPROG ---
SOAP Progress Note Assessment/Plan: Assessment: 47yo M c BLE ulcers - wrapped, per patient doesnt want them unwrapped - venous study yesterday unrevealing - CTA with runoff today - DC per IM later today, fal with Kevin next week Plan: 04/13/17 11:53 Subjective: nothing new Objective: Vital Signs Temp Pulse Resp BP Pulse Ox 36.8 C 94 20 148/90 H 97 04/13/17 09:20 04/13/17 09:20 04/13/17 09:20 04/13/17 09:20 04/13/17 09:20 Laboratory Results 04/13/17 03:41 04/13/17 03:41 04/12/17 04/13/17 04/14/17 05:59 05:59 05:59 Intake Total 2490 400 Output Total 1400 650 Balance 1090 -250 PT 13.1 SEC (12.0-15.0) 04/12/17 09:50 INR 0.97 (0.83-1.16) 04/12/17 09:50 ICD10 Worksheet Patient Problems: Problems Problem Status Onset Lower extremity ulceration Acute Venous insufficiency Acute Bilateral leg ulcer Acute
[2017-04-13 14:17] VITALS: BP 117/76; PULSE 78; RESP 16; O2SAT 98
--- NOTE | 2017-04-13 16:56 | ASDISCHSUM ---
Discharge Information Plan Status:Home with No Needs Medically Cleared to Leave:04/12/2017 Discharge Date:04/13/2017 04:43 PM CM D/C Disposition:Home, Routine, Self-Care ADT D/C Disposition:Home, Routine, Self-Care Projected Discharge Date:04/13/2017 04:43 PM Transportation at D/C:Family Discharge Delay Reason: Follow-Up Date:04/13/2017 04:43 PM Discharge Slot:2 - 12:01 pm - 18:00 pm Final Diagnosis:Bilateral LE ulcers, nonhealing scrape, HTN, neuropathy, insomnia Placement Information Patient Contact Information Contact Name:VAL Relationship: Address:[address] Work Phone: [facility] Phone: [facility]/Zip Code:[place] [address] Email: Financial Information Financial Class:HMO and PPO Plans Primary Plan Desc:[facility] Primary Plan Number:[id number] Secondary Plan Desc: Secondary Plan Number: Assessment Information [facility] CM Progress Note CM Note CM Note Notes: Pt admitted for HTN and nonhealing bilateral lower extremity wounds. Per MD notes, pt to hospital for venous stenting; pt to discharge home independently w/ family support and no identified needs today. Pt is and lives w/ his . No IM signed, not applicable. Pt to follow up as directed. CM avail for any further issues or concerns. Current Discharge Plan: Home independently Date Signed: 04/13/2017 04:56 PM Electronically Signed By:Albina Payton RN Intervention Information
--- NOTE | 2017-04-14 04:00 | GDS ---
[f rep st] DISCHARGE SUMMARY DISCHARGE DIAGNOSES: 1. Chronic bilateral lower extremity ulcers. 2. Hypertension. 3. Peripheral neuropathy. CONSULTANTS: 1. Dr. Yobany Pantoja, interventional radiologist. 2. Dr. Rashaad Ferrell, general surgery. IMAGING STUDIES/PROCEDURES: 1. Intravascular ultrasound of bilateral iliac veins with bilateral iliac venography and iliac venou s hemodynamics performed April 12, 2017, revealed hemodynamically insignificant deformity of the lef t common iliac vein caused by osteophytes of the lumbosacral junction. Again, no hemodynamically sig nificant stenosis was identified. He had normal right iliac veins with normal pressure in the deep v eins of the pelvis. 2. CT angiogram of the abdomen and pelvis with runoffs to bilateral lower extremities performed 2016, showed no arterial stenosis, aneurysm or occlusion. Very early atherosclerosis of the d istal abdominal aorta is noted as well as chronic disk degeneration and osteophytosis of L5-S1 incide ntally. HISTORY OF DETAILS: Please see the history and physical dated April 12, 2017. In brief, the patien rome is a 47-year-old male who is an active rock climber and has suffered with now chronic bilateral low er extremity ulcers since September. He has had several biopsies in the outpatient surgery clinic which w ere negative for vasculitis and one was positive for venous stasis dermatitis. However, he has not h ad problems with lower extremity edema and has no evidence of venous occlusion on his venogram as abo ve. He previously had a CT scan of his pelvis which did not reveal a mass effect on the iliac vein. There was originally some suspicion for an iliac vein stenosis and he was brought in for an elective procedure for venous stenting. However, as above, he did not have any hemodynamically significant v enous stenosis and thus no venous stents were placed. He has been evaluated by Dermatology at the [facility] and has seen his primary care. 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 The patient was admitted to the hospital for observation for the IR procedure described above. HOSPITAL COURSE: The patient underwent interventional radiology venogram as above. He was then admi tted to the progressive care unit. I inspected his ulcers on the right leg though he refused for me to unwrap his left leg on the day of admission. I also reviewed photographs that the patient and his provided of the ulcers dating back to [place] of 2017. They seem to have progressed and several o f these ulcers now appear to be punctate lesions with central necrosis. He has previously been treat ed with Keflex for a secondary infection. He denies fevers though [place] [id number]. His CRP was elevated at 53, which was the highest it has been previously. On the day o f discharge, I considered initiating antibiotics for a possible infection and recommended we perform another culture. However, the patient refused the culture. He will be treated with 1 week of Augmen tin though I recommend he undergo wound culture in the outpatient setting. I also considered vasculi tis for a possible autoimmune disorder, as an etiology of his ulcers. An MUNA and ANCA vasculitis coello el was sent. He is going to be followed up in the outpatient setting. I also recommend he return to the [facility] for followup. In addition, he has follow up with his general surg cici on Saturday for a dressing change. DISPOSITION: Patient is discharged home in stable condition. DISCHARGE MEDICATIONS: Please see [employer] for completed outpatient medication list. New medication s on discharge include oxycodone 5-10 mg p.o. q.6 hours p.r.n. #20, no refills. Augmentin 875 mg p.o . twice daily #14, no refills. We discontinued his [place] and his tramadol as he prefers oxycodone fo r pain control. I discussed with him this should be used only short term. He will continue all othe r outpatient medications as previously prescribed. /[id number]/MODL
== END 2017-04-13 16:43 | disposition home or self-care (01) ==
LOC: F2W 18:05
PROVIDERS: ADMIT Internal Medicine; ATTEND Hospitalist
PROC: B54DZZ3 Ultrasonography of Bilateral Lower Extremity Veins, Intravascular (ICD-10-PCS; principal; 2017-04-12 16:45)
PROC: 3E033KZ Introduction of Other Diagnostic Substance into Peripheral Vein, Percutaneous Approach (ICD-10-PCS; principal; 2017-04-12 16:45)
PROC: B54DZZA Ultrasonography of Bilateral Lower Extremity Veins, Guidance (ICD-10-PCS; principal; 2017-04-12 16:45)
DX: L97.219 Non-pressure chronic ulcer of right calf with unspecified severity (principal); L97.229 Non-pressure chronic ulcer of left calf with unspecified severity; M25.78 Osteophyte, vertebrae; I10 Essential (primary) hypertension; G62.9 Polyneuropathy, unspecified; F17.210 Nicotine dependence, cigarettes, uncomplicated; G47.00 Insomnia, unspecified; D72.829 Elevated white blood cell count, unspecified; D47.3 Essential (hemorrhagic) thrombocythemia
CPT/HCPCS: 36005; 37252; 37253; 75635; 75822; 97161; 97165; 99152; 99153; C1753; C1769; G0378; 83516-90; 83520-90; 96374; J0690; J1170; J1644; J1650; J2250; J2310; J2405; J3010; Q9967

== ENCOUNTER → 2017-05-10 | Outpatient (CLI) | payer OTHER | LOC: FIMAGING 09:46 | PROVIDERS: ATTEND Surgery | DX: I99.8 Other disorder of circulatory system (principal); L97.929 Non-pressure chronic ulcer of unspecified part of left lower leg with unspecified severity; L97.919 Non-pressure chronic ulcer of unspecified part of right lower leg with unspecified severity ==